=== PATIENT | male | born 1995 | race Caucasian/White ===

== ENCOUNTER 2020-10-22 16:30 | Emergency (ER) | payer SELFPAY | END 2020-10-22 16:48 | disposition left against medical advice (07) | LOC: DL.ED 16:30 | DX: Z53.21 Procedure and treatment not carried out due to patient leaving prior to being seen by health care provider (principal) ==

== ENCOUNTER 2023-06-25 23:58 | Emergency (ER) | payer OTHER ==
[2023-06-26] LABS: BASOPHILS PERCENT AUTO 0.6 % (0.0-1.0); EOSINOPHILS PERCENT AUTO 0.6 % (1.0-3.0); HEMATOCRIT 39.9 % (40.0-54.0); HEMOGLOBIN 13.6 g/dL (14.0-18.0); MEAN CORPUSCULAR HEMOGLOBIN 32.8 pg (27.0-34.0); MEAN CORPUSCULAR HGB CONC 34.1 g/dL (33.0-35.0); MEAN CORPUSCULAR VOLUME 96.1 fL (80-100); MONOCYTES PERCENT AUTO 9.2 % (2-8); NEUTROPHILS PERCENT AUTO 70.6 % (42.2-75.2); PLATELET COUNT,PLT 253 10^3/uL (150-450); RED BLOOD CELL COUNT 4.15 10^6/uL (4.6-6.2); WHITE BLOOD CELL COUNT,WBC 12.5 10^3/uL (5.0-10.0)
[2023-06-26 00:18] LABS: A/G RATIO 1.3; ALBUMIN 3.9 g/dL (3.4-5.0); ANION GAP 18.6 mEq/L (7-13); BILIRUBIN TOTAL 0.2 mg/dL (0.2-1.0); BUN/CREATININE RATIO 12.9 (No establ ref range); CALCIUM 8.6 mg/dL (8.5-10.1); CREATININE 1.01 mg/dL (0.70-1.30); EST CRCL DRUG DOSING (CG) 113.77 mL/min; POTASSIUM,K 3.6 mmol/L (3.5-5.1); PROTEIN TOTAL,TP 6.8 g/dL (6.4-8.2)
[2023-06-26] MEDS ORDERED: Diphtheria,Pertussis(Acell),Tetanus Vaccine 0.5 ML Syringe IM ONE (00:45)
[2023-06-26] MEDS ORDERED: ceFAZolin 2 GM Vial IVPUSH ONE (00:45)
[2023-06-26] MEDS ORDERED: Lactated Ringers 1,000 ML IV ONE (00:54)
[2023-06-26] MEDS ORDERED: Lidocaine 2% with EPINEPHrine 1:200,000 20 ML SDV INJECT ONE (00:54)
== END 2023-06-26 02:20 | disposition home or self-care (01) ==
LOC: DL.ED 23:58
DX: S71.142A Puncture wound with foreign body, left thigh, initial encounter (principal); S71.141A Puncture wound with foreign body, right thigh, initial encounter; S50.811A Abrasion of right forearm, initial encounter; S50.812A Abrasion of left forearm, initial encounter; S00.03XA Contusion of scalp, initial encounter; F10.920 Alcohol use, unspecified with intoxication, uncomplicated; Z23 Encounter for immunization; V89.2XXA Person injured in unspecified motor-vehicle accident, traffic, initial encounter; Y92.410 Unspecified street and highway as the place of occurrence of the external cause
CPT/HCPCS: 36415; 70450; 71250; 72125; 73552; 80053; 80307; 85025; 90471; 90715; 96361; 96374; 99284; 99285; J0690; J7120; J3490

== ENCOUNTER 2024-05-24 12:16 | Emergency (ER) | payer BC ==
[2024-05-24] MEDS: HYDROmorphone 1 MG/ML Syringe SUBCUT ONE (13:24)
[2024-05-24] MEDS: Take Home: Acetaminophen/HYDROcodone 325-5 MG, 5 Tab Pack PO ONE (15:04)
== END 2024-05-24 15:18 | disposition home or self-care (01) ==
LOC: DL.ED 12:16
DX: S42.021A Displaced fracture of shaft of right clavicle, initial encounter for closed fracture (principal); W13.0XXA Fall from, out of or through balcony, initial encounter
CPT/HCPCS: 73000; 96372; 99283; 99284; A9270; J1170